=== PATIENT | female | born 1965 | race Caucasian/White ===

== ENCOUNTER → 2018-04-13 15:52 | Outpatient (CLI) | payer OTHER, SELFPAY ==
--- NOTE | 2018-04-13 | DI.MRI.S_ITS ---
PROCEDURE: MR SHOULDER LT WO CON INDICATIONS: left shoulder pain TECHNIQUE: Noncontrast oblique coronal T2 fast spin echo with fat saturation, oblique sagittal T1 spin echo and T2 fast spin echo with fat saturation, axial T1 spin echo and T2 fast spin echo with fat saturation through the shoulder. COMPARISON: None. FINDINGS: Image quality: Diagnostic. Rotator cuff: No full-thickness tear the rotator cuff is present. However, there is mild supraspinatus tendinopathy without significant change. The infraspinatus, subscapularis, and teres minor tendons are intact. Note is made of edema involving the supraspinatus and infraspinatus muscle bellies. No corresponding atrophy is evident involving the rotator cuff muscles. Bones and bursae: There is no acute fracture, dislocation, or suspicious osseous lesion identified involving the osseous structures of the left shoulder. There are mild degenerative changes of the glenohumeral joint with a small glenohumeral joint effusion. Mild to moderate degenerative changes of the acromio clavicular joint are present. Small to moderate amount of fluid is contained within the subacromial subdeltoid bursa. Capsule and soft tissues: Thickening/edema of the joint capsule is identified within the region of the rotator interval and along the axillary pouch. This could potentially be related to an inferior glenohumeral ligament sprain (edema within the axillary pouch region) and fluid contained within the subacromial subdeltoid bursa at (edema within the region of the rotator interval). Evaluation of the labrum and the glenohumeral ligaments is difficult without intra-articular contrast. There is a diminutive appearance to the posterior labrum, which may represent a chronic posterior labral tear. Sprain of the inferior glenohumeral ligament is difficult to exclude. The lung head of the biceps tendon is normally positioned within the bicipital groove, but demonstrates increased signal along its intra-articular course. IMPRESSION: 1. Edema of the glenohumeral joint capsule. Please correlate clinically to exclude adhesive capsulitis. 2. Mild supraspinatus tendinopathy. No full-thickness tear of the rotator cuff. 3. Edema of the supraspinatus and infraspinatus muscles is suggestive of muscle strains. 4. Possible sprain of the inferior glenohumeral ligament. 5. Fluid within the subacromial subdeltoid bursa is suspicious for bursitis. 6. Mild tendinopathy involving the intra-articular portion of the long head of the biceps tendon. 7. Mild to moderate degenerative changes of the glenohumeral and acromioclavicular joints. 8. Small glenohumeral joint effusion. Dictated by: Dwight Mejia M.D. on 04/13/2018 at 16:26 Approved by: Dwight Mejia M.D. on 04/13/2018 at 16:29
== END ==
PROVIDERS: Visit Provider Orthopaedic Surgery
DX: M25.512 Pain in left shoulder (principal); M19.012 Primary osteoarthritis, left shoulder; M25.412 Effusion, left shoulder; R60.9 Edema, unspecified
CPT/HCPCS: 73221

== ENCOUNTER 2019-07-24 11:30 | Emergency (ER) | payer OTHER, SELFPAY ==
[2019-07-24 11:52] VITALS: BP 149/74; PULSE 73; RESP 20; TEMP 36.7; O2SAT 100; BMI 27.3
[2019-07-24] MEDS: predniSONE 20 MG TABLET 60 MG PO (13:20)
--- NOTE | 2019-07-24 13:29 | DI.RAD.S_ITS ---
PROCEDURE: XR CHEST 2V INDICATIONS: cough, no fever TECHNIQUE: 2 views of the chest were acquired. COMPARISON: None. FINDINGS: Surgical changes and devices: None. Lungs and pleura: Lungs are clear. No pleural effusions or pneumothorax. Mediastinum: Mediastinal contours are normal. Heart size is normal. Bones and chest wall: No suspicious bony abnormalities. Age-appropriate bony degenerative changes are seen. Soft tissues appear unremarkable. IMPRESSION: No acute cardiopulmonary process is seen. Dictated by: Santos Santiago M.D. on 07/24/2019 at 12:52 Approved by: Santos Santiago M.D. on 07/24/2019 at 12:52
[2019-07-24 13:31] VITALS: BP 121/83; PULSE 80; RESP 20; TEMP 36.8; O2SAT 99
[2019-07-24] MEDS: ALBUTEROL HFA 60 PUFF/8 GM INH INH (13:47)
[2019-07-24 13:48] VITALS: PULSE 87; RESP 16; O2SAT 100
[2019-07-24 14:30] LABS: Influenza A - CEPHEID Flu A NEGATIVE (NEGATIVE); Influenza B - CEPHEID Flu B NEGATIVE (NEGATIVE)
--- NOTE | 2019-07-24 15:05 | ED.URI ---
HPI - URI/Sore Throat General Chief Complaint: Upper Respiratory Symptoms Stated Complaint: SOB, cough, fever Time Seen by Provider: 07/24/19 13:19 Source: patient Mode of arrival: Ambulatory History of Present Illness HPI Narrative: HPI: Patient is a 54-year-old female who presents to the emergency department stating that she had a fever 1 week ago. She states that she has been having diffuse body aches and joint aches. Friday she developed shortness of breath. Today she developed [place] cough. 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 She states that this happens every year and this is most consistent with her seasonal allergies. She works on the [place]. She denies a history of diabetes mellitus hypertension congestive heart failure COPD but has a history of asthma. She does not smoke cigarettes or do use any drugs. She denies at this time any fever chills sweats. She has had a mild headache associated with her coughing. Her cough is productive of a small amount of clear sputum. She has had no hemoptysis. She has been short of breath with this. Chest pain with coughing. She denies any palpitations or dizziness. She has had no abdominal pain nausea vomiting diarrhea change in bowel habits. She has had no urinary symptoms. She states that she has a history of bladder cancer x3 and arm approximately 18 months ago they instilled intravesical chemotherapy. Related Data Previous Rx's Medication Instructions Recorded albuterol sulfate 2 puff INHALATION Q4-6H PRN #8.5 07/24/19 gram prednisone 60 mg PO DAILY #15 tab 07/24/19 Allergies Allergy/AdvReac Type Severity Reaction Status Date / Time tioconazole Allergy Mild ITCHING Verified 07/24/19 14:37 [From MONISTAT 1 AND HIVES (TIOCONAZOLE)] doxycycline [DOXYCYCLINE] AdvReac Mild UPSET GI Verified 07/24/19 14:37 Review of Systems Review of Systems Narrative: Review of systems were all negative except for those mentioned in the history of present illness. Patient History Social History Smoking Status: Never smoker Smoking Status: Never smoker alcohol intake frequency: holidays/special occasions only Substance Use Type: does not use Exam Narrative Exam Narrative: PHYSICAL EXAM: CONSTITUTIONAL: Awake, Alert, Oriented, Coherent, Cooperative in NAD. Does not appear toxic or ill. The patient has a persistent clearing of her throat type cough. HEAD: AT/NC EENT: PERRL, FROM of eyes, no discharge, . No epistaxis or nasal drainage Oral mucosa is moist and pink, posterior pharynx is without erythema or exudate. NECK: Supple, no obvious JVD, Trachea is midline without stridor, no palpable LN . SPINE: No gross deformity, no palpable tenderness of the cervical, thoracic, lumbar or sacral spine. No CVA tenderness. THORAX: No deformity, retractions, chest wall tenderness,. LUNGS: Clear with symmetrical breath sounds without respiratory distress HEART: Normal heart tones, regular rhythm and rate without murmur. ABDOMEN: Soft, non-tender, normal bowel sounds without guarding, rebound, rigidity or palpable mass EXTREMITIES: No edema, cyanosis, deformity or tenderness. SKIN: No rash, bruising, petechiae or purpura. NEURO: Awake, alert, oriented, conversive, cranial nerves II-XII are symmetrical and normal, moves all 4 extremities and is ambulatory Initial Vital Signs Initial Vital Signs: Vital Signs Temperature 98.0 F 07/24/19 11:52 Pulse Rate 73 07/24/19 11:52 Respiratory Rate 20 07/24/19 11:52 Blood Pressure 149/74 H 07/24/19 11:52 Pulse Oximetry 100 07/24/19 11:52 Course Course Course Narrative: 1505: The patient works as a dental hygienist. She believes that she is having a seasonal allergic bronchospasm and bronchitis. Her influenza a and B are negative. A nice virus swab will be obtained on the patient and she will be discharged in placed at self quarantine for the next 5 days until the nice virus is resulted. She will be treated in the meantime as though she is having a seasonal allergic bronchitis bronchospasm. Orders Ordered: Discontinued Medications Albuterol (Ventolin Hfa) 2 puff INH NOW ONE Stop: 07/24/19 13:39 Last Admin: 07/24/19 13:47 Dose: 2 puff Documented by: KARSTEN Albuterol/Ipratropium (Duoneb) 3 ml INH NOW ONE Stop: 07/24/19 13:33 Last Admin: 07/24/19 14:39 Dose: Not Given Documented by: RAE Prednisone (Deltasone) 60 mg PO NOW ONE Stop: 07/24/19 13:30 Last Admin: 07/24/19 13:20 Dose: 60 mg Documented by: RAE Vital Signs Vital signs: Vital Signs - 8 hr 07/24/19 11:52 07/24/19 13:31 07/24/19 13:48 Temperature 98.0 F 98.3 F Pulse Rate 73 80 87 Respiratory Rate 20 20 16 Blood Pressure 149/74 H Blood Pressure [Right Arm] 121/83 Pulse Oximetry 100 99 100 MDM - URI/Sore Throat Lab Data Labs: Lab Results 07/24/19 Range/Units 13:11 Influenza A (RT-PCR) Flu a negative (NEGATIVE) Influenza B (RT-PCR) Flu b negative (NEGATIVE) Discharge Plan Departure Patient Disposition: Home Clinical Impression: Bronchospasm, Environmental allergies Upper respiratory infection Qualifiers: URI type: unspecified URI Qualified Code(s): J06.9 - Acute upper respiratory infection, unspecified Discharge Date/Time: 07/24/19 15:34 Instructions: Allergies, Respiratory (Alternative Therapy), DI for Cough -- Adult Activity Restrictions/Additional Instructions: 1. Follow-up with your primary care physician in 4-5 days to get the results of the nice virus test. 2. A work excuse for the next 5 days. We have ordered a nice virus test on you. Your influenza a and B tests were negative. Your chest x-ray does not show any pneumonia. We are going to treat you as though you are having a seasonal allergic bronchospasm/cough 3. Take the prednisone 60 mg per day for the next 5 days. 4. Use your albuterol inhaler with spacer 1-2 puffs every 2-4 hours as needed for cough shortness of breath or wheezing. 5. If you develop a productive cough, chest pain, racing of your heart dizziness or passing-out you need to return to the emergency department. 6. You need to drink 2 to 4 L of fluid per day to keep herself hydrated. Prescriptions: New prednisone 20 mg tablet 60 mg PO DAILY Qty: 15 RF: 0 albuterol sulfate 90 mcg/actuation HFA aerosol inhaler 2 puff INHALATION Q4-6H PRN (Reason: shortness of breath or wheezing) Qty: 8.5 RF: 2 Referrals: Stormy Churchill [Primary Care Provider] - Stand Alone Forms: Work Release Note
[2019-07-24 15:13] VITALS: BP 125/78; PULSE 72; RESP 24; O2SAT 100
[2019-07-31 07:35] LABS: COVID19 Sendout Not Detected (Not Detected)
== END 2019-07-24 15:34 | disposition home or self-care (01) ==
PROVIDERS: Emergency Provider Emergency Medicine; PCP Physician Assistant Medical
DX: J98.01 Acute bronchospasm (principal); J06.9 Acute upper respiratory infection, unspecified; Z91.09 Other allergy status, other than to drugs and biological substances
CPT/HCPCS: 71046; 87502; 87635; 94640; 99283; 99284